=== PATIENT | female | born 1985 | race Caucasian/White ===

== ENCOUNTER 2018-03-10 11:17 | Emergency (ER) | payer MEDICAID ==
[2018-03-10 13:02] LABS: ADD MAN DIFF? NO
[2018-03-10 13:04] LABS: WHITE BLOOD COUNT 8.9 10^3/ul (4.8-10.8)
[2018-03-10 13:04] LABS: BASOPHIL # 0.1 10^3/ul (0.0-0.1); BASOPHILS % 0.7 % (0.0-2.0); EOSINOPHILS # 0.2 10^3/ul (0.0-0.5); EOSINOPHILS % 1.9 % (0.0-7.0); HEMATOCRIT 45.2 % (37.0-47.0); HEMOGLOBIN 15.1 g/dl (12.0-16.0); LYMPHOCYTES # 3.4 10^3/ul (0.8-2.9); LYMPHOCYTES % 38.1 % (15.0-51.0); MEAN CORPUSCULAR HEMOGLOBIN 30.7 pg (29.0-33.0); MEAN CORPUSCULAR HGB CONC 33.4 g/dl (32.0-37.0); MEAN CORPUSCULAR VOLUME 91.9 fl (82.0-101.0); MEAN PLATELET VOLUME 9.9 fl (7.4-10.4); MONOCYTE # 0.4 10^3/ul (0.3-0.9); MONOCYTES % 4.4 % (0.0-11.0); NEUTROPHIL # 4.9 10^3/ul (1.6-7.5); NEUTROPHILS % 54.8 % (39.0-77.0); PLATELET COUNT 350 10^3/UL (140-415); RED BLOOD COUNT 4.92 10^6/ul (4.20-5.40); RED CELL DISTRIBUTION WIDTH 12.8 % (11.5-14.5)
[2018-03-10] MEDS: ONDANSETRON (ODT) 4 MG TAB ODT (13:04)
[2018-03-10] MEDS: HYDROCODONE/APAP (5/325) TAB PO (13:05)
[2018-03-10 13:23] LABS: ADD UMIC YES; UR ASCORBIC ACID NEGATIVE (NEGATIVE); UR BACTERIA FEW /HPF (NONE SEEN); UR BILIRUBIN (Dip) NEGATIVE (NEGATIVE); UR BLOOD (Dip) 2+ mg/dL (NEGATIVE); UR CLARITY SLIGHTLY CLOUDY (CLEAR); UR COLOR YELLOW (YELLOW); UR GLUCOSE (Dip) NEGATIVE (NEGATIVE); UR KETONES (Dip) NEGATIVE (NEGATIVE); UR LEUKOCYTE ESTERASE (Dip) NEGATIVE Leu/ul (NEGATIVE); UR MUCUS FEW /HPF (NONE SEEN); UR NITRITE (Dip) POSITIVE (NEGATIVE); UR RBC 18 /HPF (0-5); UR SPECIFIC GRAVITY (Dip) 1.025 (1.003-1.030); UR SQUAMOUS EPITHELIAL CELL FEW /HPF (FEW); UR TOTAL PROTEIN (Dip) NEGATIVE (NEGATIVE); UR UROBILINOGEN (Dip) NEGATIVE (NEGATIVE); UR WBC 4 /HPF (0-5)
[2018-03-10 13:25] LABS: ALANINE AMINOTRANSFERASE 45 IU/L (13-69); ALBUMIN 4.6 g/dl (3.3-4.9); ALBUMIN/GLOBULIN RATIO 1.31; ALKALINE PHOSPHATASE 136 IU/L (42-121); ANION GAP 15 (5-13); ASPARTATE AMINO TRANSFERASE 24 IU/L (15-46); BILIRUBIN,INDIRECT 0.3 mg/dl (0-1.1); BILIRUBIN,TOTAL 0.3 mg/dl (0.2-1.3); BLOOD UREA NITROGEN 15 mg/dl (7-20); CALCIUM 9.9 mg/dl (8.4-10.2); CARBON DIOXIDE 25 mmol/L (21-31); CHLORIDE 103 mmol/L (97-110); CREATININE 0.54 mg/dl (0.44-1.00); Estimated GFR > 60 mL/min (>60); GLUCOSE 83 mg/dl (70-220); LIPASE 80 U/L (23-300); POTASSIUM 4.1 mmol/L (3.5-5.1); SODIUM 143 mmol/L (135-144); TOTAL PROTEIN 8.1 g/dl (6.1-8.1)
== END 2018-03-10 14:02 | disposition home or self-care (01) ==
LOC: FTE 11:17
DX: K80.20 Calculus of gallbladder without cholecystitis without obstruction (principal)
CPT/HCPCS: 36415; 76705; 80053; 81001; 81025; 83690; 85025; 99284-25

== ENCOUNTER 2018-06-02 07:33 | Day surgery (SDC) | payer SELFPAY ==
[~2018-06-02 07:33] MED LIST: CEFAZOLIN 2 GM/50 ML (PMX) 50 ML IVPB; SOD CHLORIDE 0.9% 1,000 ML IV
[2018-06-02] MEDS ORDERED: MIDAZOLAM 1 MG/ML 2 ML INJ (10:59)
[2018-06-02] MEDS ORDERED: GLYCOPYRROLATE 0.4 MG INJ (10:59)
[2018-06-02] MEDS ORDERED: PROPOFOL 20 ML (10:59)
[2018-06-02] MEDS ORDERED: ROCURONIUM 50 MG INJ ×2 (10:59→12:13)
[2018-06-02] MEDS ORDERED: NEOSTIGMINE 3 MG/3 ML SYRINGE (10:59)
[2018-06-02] MEDS ORDERED: ONDANSETRON 4 MG INJ (10:59)
[2018-06-02] MEDS ORDERED: ROPIVACAINE 0.5 % 30 ML VIAL (10:59)
[2018-06-02] MEDS ORDERED: METOCLOPRAMIDE 10 MG INJ (10:59)
[2018-06-02] MEDS ORDERED: HYDROmorphONE 1 MG/5 ML IV SYRINGE IV ×3 (11:00)
[2018-06-02] MEDS ORDERED: MEPERIDINE 25 MG INJ IV (11:00)
[2018-06-02] MEDS ORDERED: FENTAnyl 50 MCG/ML VIAL IV ×2 (11:00)
[2018-06-02] MEDS ORDERED: OXYCODONE/ACETAMINOPHEN (5/325) TAB PO ×2 (11:00)
[2018-06-02] MEDS ORDERED: DIPHENHYDRAMINE 50 MG INJ IV (11:00)
[2018-06-02] MEDS ORDERED: KETOROLAC 30 MG INJ IV ×2 (11:00→12:30)
[2018-06-02] MEDS ORDERED: ONDANSETRON 4 MG INJ IV ×2 (11:00→12:30)
[2018-06-02] MEDS: BUPIVACAINE 0.25%/EPI (SDV) 30 ML INJ (11:45)
[2018-06-02] MEDS ORDERED: KETOROLAC 30 MG INJ (12:06)
[2018-06-02] MEDS ORDERED: FENTAnyl 50 MCG/ML VIAL (12:18)
[2018-06-02] MEDS ORDERED: IBUPROFEN 600 MG TAB PO (12:30)
[2018-06-02] MEDS ORDERED: morphine 2 MG INJ IV (12:30)
[2018-06-02] MEDS ORDERED: HYDROCODONE/APAP (5/325) TAB PO ×2 (12:30)
[2018-06-02] MEDS: FENTAnyl 50 MCG/ML VIAL IV ×2 (12:42→12:50)
== END 2018-06-02 14:00 | disposition home or self-care (01) ==
LOC: SDS 07:33
DX: K80.10 Calculus of gallbladder with chronic cholecystitis without obstruction (principal)
CPT/HCPCS: 47562; 88304